=== PATIENT | male | born 1955 | race Caucasian/White ===

== ENCOUNTER 2017-08-04 21:10 | Emergency (ER) | payer SELFPAY ==
[~2017-08-04] VITALS: Ht 167.6 cm; Wt 68.0 kg
--- NOTE | 2017-08-05 01:14 | Emergency Room Report ---
History of Present Illness General Chief Complaint: Alcohol Intoxication Source: EMS Present Illness HPI This is a 61-year-old male brought in by EMS for alcohol intoxication. He was outside of a liquor store passed out. Similar symptom in the past per EMS. Multiple runs in the past. No trauma. Unable to get any history from this patient. Patient History Past Medical History: see triage record, old chart reviewed Past Surgical History: unable to obtain Pertinent Family History: unable to obtain Social History: Reports: alcohol use Immunizations: other Reviewed Nursing Documentation: PMH: Agreed, PSxH: Agreed Review of Systems All Other Systems: limited - Secondary to intoxication Physical Exam Vital Signs Date Time Temp Pulse Resp B/P (MAP) Pulse Ox O2 Delivery O2 Flow Rate FiO2 08/04/17 21:07 97.5 89 14 151/92 99 Room Air vitals with high pressure Sp02 EP Interpretation: reviewed, normal General Appearance: well appearing, no apparent distress, other - Severely intoxicate Head: normocephalic, atraumatic Eyes: bilateral eye PERRL, bilateral eye EOMI ENT: hearing grossly normal, normal pharynx Neck: full range of motion, supple, no meningismus Respiratory: chest non-tender, lungs clear, normal breath sounds Cardiovascular #1: regular rate, rhythm, no murmur Gastrointestinal: normal bowel sounds, non tender, no mass, no organomegaly, no bruit, non-distended Musculoskeletal: back normal, normal range of motion Neurologic: grossly normal Psychiatric: mood/affect normal Skin: warm/dry Medical Decision Making Diagnostic Impression: Primary Impression: Acute alcoholic intoxication Qualified Codes: F10.929 - Alcohol use, unspecified with intoxication, unspecified ER Course Patient with alcohol intoxication. He is sleeping through the night. Slowly waking up. No trauma to warrant x-ray or CT scan. We'll observe her until clinical sobriety. Last Vital Signs Date Time Temp Pulse Resp B/P (MAP) Pulse Ox O2 Delivery O2 Flow Rate FiO2 08/04/17 21:07 97.5 89 14 151/92 99 Room Air Status: improved Disposition: HOME, SELF-CARE Condition: Stable Patient Instructions: Alcohol Intoxication, [id number] Additional Instructions: abstain from drugs and alcohol. Followup with your DrNick in 7 days. Return if worse. RENNY MANCILLA M.D. Aug 05, 2017 01:14
[2017-08-05 05:53] VITALS: BP 0/0
== END 2017-08-05 05:59 | disposition home or self-care (01) ==
LOC: EDBD 21:10 → EMR 21:24
DX: F10.129 Alcohol abuse with intoxication, unspecified (principal)
CPT/HCPCS: 99282